=== PATIENT | male | born 2005 | race Caucasian/White ===

== ENCOUNTER 2025-03-29 19:23 | Emergency (ER) | payer OTHER, SELFPAY ==
[2025-03-29 19:24] VITALS: BMI 27.1
[2025-03-29 19:31] VITALS: BP 152/76; PULSE 98; RESP 20; TEMP 36.9; O2SAT 98
[2025-03-29] MEDS: BACITRACIN OINT 1 GM PACKET TOP (19:55)
[2025-03-29] MEDS: CLINDAMYCIN 150 MG CAPSULE 300 MG PO (19:55)
--- NOTE | 2025-03-30 04:47 | EDNOTE_ITS ---
ED Skin Abcess FB-RME/HPI General Chief complaint: Hand/Wrist Problems Stated complaint: RIGHT MIDDLE FINGER INFECTION Time Seen by Provider: 03/29/25 19:31 Arrival date/time: 03/29/25 19:23 This is a case of 20-year-old male with no medical history came into the emergency room due to finger pain history of present illness started when the patient noticed a pain redness swelling on the third finger right hand 3 days prior to arrival in the emergency room patient states that due to worsening of the symptoms and the redness and noted to have drainage on the side of his nail thus patient decided to sought consult here in the emergency room patient vaccine is up-to-date no injury no trauma Limitations: no limitations Related Data Previous Rx's ?Medication ?Instructions ?Recorded clindamycin HCl 300 mg capsule 300 mg PO Q6H 10 days # 40 caps 03/29/25 (Cleocin HCl) ibuprofen 600 mg tablet 600 mg PO Q8H PRN pain #20 t abs 03/29/25 mupirocin 2 % topical ointment 1 applic topical BID #2 2 grams 03/29/25 (Centany) Allergies Allergy/AdvReac Type Severity Reaction Status Date / Time No Known Allergies Allergy Verified 03/29/25 19:24 Review of Systems Review of Systems Systems Reviewed: All systems reviewed, normal except as documented Constitutional Constitutional: Reports system reviewed and no additional complaints, except as documented and Reports as per HPI Cardiovascular Cardiovascular: Reports system reviewed and no additional complaints, except as documented and Reports as per HPI Respiratory Respiratory: Reports system reviewed and no additional complaints, except as documented and Reports as per HPI Genitourinary Genitourinary: Reports system reviewed and no additional complaints, except as documented and Reports as per HPI Neurologic Neurologic: Reports system reviewed and no additional complaints, except as documented and Reports as per HPI Past Medical History Social History SMOKING STATUS: Current every day smoker ED Exam General Limitations: Present no limitations General appearance: Present alert, in no apparent distress and other (Patient is awake alert oriented not in distress nontoxic looking well-hydrated well- nourished) Head Head exam: Present atraumatic Eye Eye exam: Present normal appearance, PERRL and EOMI ENT ENT exam: Present normal exam, normal oropharynx and mucous membranes moist Neck Neck exam: Present normal inspection, full ROM and trachea midline; Absent tenderness, meningismus, lymphadenopathy or thyromegaly Chest Chest inspection: Present normal inspection and symmetric chest wall rise; Absent tenderness Respiratory Respiratory exam: Present normal lung sounds bilaterally; Absent respiratory distress, wheezes, stridor, accessory muscle use or prolonged expiratory phase Cardiovascular Cardiovascular exam: Present regular rate, normal rhythm and normal heart sounds; Absent bradycardia, tachycardia, irregular rhythm or systolic murmur Abdominal Exam Abdominal exam: Present soft and normal bowel sounds; Absent distention, tenderness, guarding, rebound, rigidity, diminished bowel sounds, hyperactive bowel sounds, hypoactive bowel sounds or organomegaly Extremities Exam Extremities exam: Present normal inspection and full ROM Back Exam Back exam: Present normal inspection and full ROM Neurological Exam Neurological exam: Present alert, oriented X3, CN II-XII intact, normal gait and reflexes normal; Absent motor sensory deficit Psychiatric Psychiatric exam: Present normal affect and normal mood Skin Skin exam: Present warm, dry, intact, normal color and other (Noted moderate tenderness on palpation on the distal third finger of the third finger right hand with swelling and redness suggestive of cellulitis no fluctuance nonindurated no abscess ROM intact neurovascular intact nail is intact) Course Quality Measures none Orders Category Date Time Status Bacitracin Oint pkt Med 03/29/25 19:37 Discontinued 1 gm TOP X1 ONE Clindamycin [Cleocin] Med 03/29/25 19:37 Discontinued 300 mg PO X1 ONE Vital Signs Vital signs: Vital Signs Temperature 98.5 F 03/29/25 19:31 Pulse Rate 98 03/29/25 19:31 Respiratory Rate 20 03/29/25 19:31 Blood Pressure 152/76 H 03/29/25 19:31 Pulse Oximetry (%) 98 03/29/25 19:31 Oxygen Delivery Method Room Air 03/29/25 19:31 Oxygen saturation is 98% in room air Skin / Abscess / Foreign Body MDM Narrative MDM Narrative:: This is a case of 20-year-old male with no medical history came into the emergency room due to finger pain history of present illness started when the patient noticed a pain redness swelling on the third finger right hand 3 days prior to arrival in the emergency room patient states that due to worsening of the symptoms and the redness and noted to have drainage on the side of his nail thus patient decided to sought consult here in the emergency room patient vaccine is up-to-date no injury no trauma physical examination patient is awake alert oriented not in distress nontoxic looking well-hydrated well no noted moderate tenderness on palpation on the third finger right hand with some redness suggestive of cellulitis and abscess but no fluctuance nonindurated ROM intact neurovascular intact patient was given a clindamycin here in the emergency room and mupirocin ointment patient will follow-up with PCP in 2 days for reevaluation and wound check and for any worsening symptoms or any emergent concern return precaution in the ER is adsvied Patient data External records reviewed:: [facility] previous records Clinical information provided by:: patient Social determinants that could affect healthcare access:: none (none) Patient has the following chronic illnesses:: none How is presenting disease/condition affected by chronic disease/condition?: no chronic disease Evaluation data The following diagnostics were reviewed and interpreted by me:: other (specify) (none) Lab and/or radiology exams considered but not ordered:: none Interpretation Summary: none Medications / Prescriptions Medications or Prescriptions considered but not ordered:: given Medication administrations:: Medication Administration History Discontinued Medications Bacitracin (Bacitracin Oint 1 Gm Packet) 1 gm TOP X1 ONE Stop: 03/29/25 19:38 Last Admin: 03/29/25 19:55 Dose: 1 gm Documented By: MEDHAT Clindamycin HCl (Clindamycin 150 Mg Capsule) 300 mg PO X1 ONE Stop: 03/29/25 19:38 Last Admin: 03/29/25 19:55 Dose: 300 mg Documented By: MEDHAT given Consultations Consultation(s) initiated? (list below): No Diagnosis Skin/Abscess Differential Diagnosis: abscess of skin or subcutaneous tissue and cellulitis Most likely diagnosis given after review of the tests above:: abscess/cellulitis finger Admission Indicated Admission indicated?: not indicated Explain why admission is indicated or not indicated:: not indicated Admission Request Was there a request for admission?: No Disposition Plan Disposition Plan: Discharge Discharge Attestation Discharge Attestation: The patient and all family members were given an opportunity to ask questions and understood the discharge instructions. Discharge instructions specifically effects, indications for sooner follow up or return to the emergency department, and the expected course of current diagnosis. Patient condition: Stable Discharge Plan Plan Patient Disposition: HOME (Self Care) Patient condition on transfer: Stable Prescriptions/Referrals Prescriptions/Med Rec: New clindamycin HCl [Cleocin HCl] 300 mg capsule 300 mg PO Q6H 10 Days Qty: 40 0RF mupirocin [Centany] 2 % ointment 1 applic topical BID Qty: 22 0RF ibuprofen 600 mg tablet 600 mg PO Q8H PRN (Reason: pain) Qty: 20 0RF Problem List Clinical Impression: Paronychia, Cellulitis of finger Patient/Caregiver Discharge Instructions Education Materials: ED Cellulitis, ED Paronychia of the Finger or Toe Additional Instructions: Follow-up with your primary care physician in 2 days for reevaluation and wound check worsening symptoms or any emergent concern call 911 or go to the nearest emergency room take your medication as directed finish the course of antibiotic keep the area clean and dry Print Language: Portuguese Stand Alone Forms: Marlee Award Info., Patient Portal Info Letter PA/PRACTICAL NURSING INSTRUCTOR Supervising Physician PA/PRACTICAL NURSING INSTRUCTOR Supervising Physician: DR tu smith
== END 2025-03-29 20:33 | disposition home or self-care (01) ==
LOC: SERX 20:04
PROVIDERS: Emergency Provider Emergency Medicine
DX: L03.011 Cellulitis of right finger (principal)
CPT/HCPCS: 99281; A9270

== ENCOUNTER 2025-04-13 20:17 | Emergency (ER) | payer OTHER, SELFPAY ==
[2025-04-13 20:18] VITALS: BMI 30.8
--- NOTE | 2025-04-13 20:39 | EKG_ITS ---
[facility] (Formerly [facility]) Test Date: 2025-04-13 Pat Name: DANISH KELLER Department: Room: - Gender: Male Petrologist: : 2005 Requested By: ED Temporary Provider Order Number: [id number] Reading MD: ED Temporary Provider Measurements Intervals [place] Rate: 81 P: 45 IA: 154 QRS: 82 QRSD: 89 T: 31 QT: 360 QTc: 419 Interpretive Statements SINUS RHYTHM No previous ECG available for comparison /store/[email or web address]/[id number].pdf
[2025-04-13 21:24] VITALS: BP 136/91; PULSE 72; RESP 18; TEMP 36.9; O2SAT 98
--- NOTE | 2025-04-13 21:30 | XR_ITS ---
EXAMINATION: PA chest single view TECHNIQUE: Upright PA chest single view Date and time: April 13, 2025, 215 hours INDICATIONS: Chest tightness shortness of breath today. FINDINGS: Normal heart size Lungs are clear Osseous structures are intact IMPRESSION: No active disease
[2025-04-13 21:51] LABS: Basophils # (Auto) 0.1 Thou/mm3 (0.0-0.2); Basophils % (Auto) 1 % (0-2.5); Eosinophils # (Auto) 0.2 Thou/mm3 (0.0-0.5); Eosinophils % (Auto) 3 % (0-10); Hematocrit 42.7 % (41.0-53.0); Hemoglobin 14.9 g/dL (13.5-16.0); Immature Granulocytes Auto 0.00 Thou/mm3 (0.00-0.00); Lymphocytes # (Auto) 2.4 Thou/mm3 (1.0-4.8); Lymphocytes % (Auto) 38 % (10-50); Mean Corpuscular HGB Conc 34.9 g/dl (31.0-37.0); Mean Corpuscular Hemoglobin 30.7 pg (25.0-35.0); Mean Corpuscular Volume 88 fL (80-100); Monocytes # (Auto) 0.6 Thou/mm3 (0.0-0.8); Monocytes % (Auto) 9 % (0-12); Neutrophils # (Auto) 3.1 Thou/mm3 (1.8-7.7); Neutrophils % (Auto) 49 % (37-80); Nucleated Red Blood Cell # 0.00 Thou/mm3 (0.00-0.00); Nucleated Red Blood Cell % 0 /100 WBC (0); Platelet Count 282 Thou/mm3 (140-440); RDW Standard Deviation 40.3 fL (35.1-43.9); Red Blood Count 4.85 Miln/mm3 (4.50-5.90); White Blood Count 6.3 Thou/mm3 (3.8-10.6)
[2025-04-13 22:10] LABS: B-Type Natriuretic Peptide < 20 pg/mL (0-100)
[2025-04-13 22:13] LABS: Alanine Aminotransferase 33 U/L (10-49); Albumin, Serum 4.7 gm/dL (3.5-5.0); Albumin/Globulin Ratio 1.7 (1.2-2.2); Alkaline Phosphatase 48 U/L (46-116); Anion Gap 7 (7-16); Aspartate Amino Transferase 34 U/L (0-34); BUN/Creatinine Ratio 11 Ratio (12-20); Bilirubin,Total 0.3 mg/dL (0.3-1.2); Blood Urea Nitrogen 13 mg/dL (9-23); Calcium 9.0 mg/dL (8.3-10.6); Calcium (Corrected) 9.0 mg/dL (8.5-10.1); Carbon Dioxide 29.6 mMol/L (20.0-31.0); Chloride 104 mMol/L (98-107); Creatinine (Component) 1.2 mg/dL (0.6-1.3); Estimated Creatinine Clearance 127.9 mL/min (>60); Globulin 2.8 gm/dL (2.3-3.5); Glucose 96 mg/dL (74-106); Osmolality,Calculated 281 (275-295); Potassium 4.1 mMol/L (3.4-5.1); Sodium 141 mMol/L (136-145); Thyroid Stimulating Hormone 3.67 uIU/mL (0.55-4.78); Total Protein 7.5 gm/dL (5.7-8.2); Troponin I < 0.002 ng/mL (0.0-0.045); eGFR > 60 See Note
--- NOTE | 2025-04-13 22:37 | EDNOTE_ITS ---
ED Chest Pain RME/HPI General Chief Complaint: Chest Pain Stated Complaint: TIGHNESS IN CHEST, FELT SOB Time Seen by Provider: 04/13/25 20:42 Arrival date/time: 04/13/25 20:17 This is a case of 20-year-old male with no medical history came in in the emergency room due to chest pain history of present illness started today when the patient had midsternal chest pain tightness in character nonradiating with mild shortness of breath with no palpitation no other symptoms noted Limitations: no limitations Related Data Previous Rx's ?Medication ?Instructions ?Recorded ibuprofen 600 mg tablet 600 mg PO Q8H PRN pain #20 t abs 03/29/25 mupirocin 2 % topical ointment 1 applic topical BID #2 2 grams 03/29/25 (Centany) ibuprofen 600 mg tablet 600 mg PO Q8H PRN pain #20 t abs 04/13/25 Allergies Allergy/AdvReac Type Severity Reaction Status Date / Time No Known Allergies Allergy Verified 03/29/25 19:24 Review of Systems Review of Systems Systems Reviewed: All systems reviewed, normal except as documented Constitutional Constitutional: Reports system reviewed and no additional complaints, except as documented and Reports as per HPI Cardiovascular Cardiovascular: Reports system reviewed and no additional complaints, except as documented and Reports as per HPI Respiratory Respiratory: Reports system reviewed and no additional complaints, except as documented and Reports as per HPI Gastrointestinal Gastrointestinal: Reports system reviewed and no additional complaints, except as documented and Reports as per HPI Musculoskeletal Musculoskeletal: Reports system reviewed and no additional complaints, except as documented and Reports as per HPI Neurologic Neurologic: Reports system reviewed and no additional complaints, except as documented and Reports as per HPI Past Medical History Social History SMOKING STATUS: Current every day smoker ED Exam General Limitations: Present no limitations General appearance: Present alert, in no apparent distress and other (Patient is awake alert oriented not in distress nontoxic looking well-hydrated well nourished) Head Head exam: Present atraumatic, normocephalic and normal inspection Eye Eye exam: Present normal appearance, PERRL and EOMI ENT ENT exam: Present normal exam, normal oropharynx and mucous membranes moist Neck Neck exam: Present normal inspection, full ROM and trachea midline; Absent tenderness, meningismus, lymphadenopathy or thyromegaly Chest Chest inspection: Present normal inspection, symmetric chest wall rise and tenderness (Mild pinpoint tenderness on midsternal no crepitation no deformity no palpable rib fracture no subcutaneous emysema) Respiratory Respiratory exam: Present normal lung sounds bilaterally; Absent respiratory distress, wheezes, stridor, accessory muscle use or prolonged expiratory phase Cardiovascular Cardiovascular exam: Present regular rate, normal rhythm and normal heart sounds; Absent bradycardia, tachycardia, irregular rhythm, systolic murmur or diastolic murmur Abdominal Exam Abdominal exam: Present soft and normal bowel sounds; Absent distention, t enderness, guarding, rebound, rigidity, diminished bowel sounds, hyperactive bowel sounds, hypoactive bowel sounds or organomegaly Extremities Exam Extremities exam: Present normal inspection and full ROM Back Exam Back exam: Present normal inspection and full ROM Neurological Exam Neurological exam: Present alert, oriented X3, CN II-XII intact, normal gait and reflexes normal; Absent motor sensory deficit Psychiatric Psychiatric exam: Present normal affect and normal mood Skin Skin exam: Present warm, dry, intact, normal color and other (excellent skin turgor) Course Quality Measures none Orders Category Date Time Status EKG (ED ONLY) *Do not use* NOW Care 04/13/25 20:39 Completed EKG (ED ONLY) *Do not use* NOW Care 04/13/25 21:30 Completed EKG (ED Only) Stat Exams 04/13/25 20:39 Draft EKG (ED Only) Stat Exams 04/13/25 21:30 Ordered XR chest 1V Stat Exams 04/13/25 21:30 Completed BNP [B-Type Natriuretic Peptide] Stat Lab 04/13/25 21:38 Completed CBC Stat Lab 04/13/25 21:38 Completed CMP [Comprehensive Metabolic Panel] Stat Lab 04/13/25 21:38 Completed TSH [Thyroid Stimulating Hormone] Stat Lab 04/13/25 21:38 Completed Troponin I Stat Lab 04/13/25 21:38 Completed Urinalysis Stat Lab 04/13/25 21:30 Ordered Vital Signs Vital signs: Vital Signs Temperature 98.5 F 04/13/25 21:24 Pulse Rate 72 04/13/25 21:24 Respiratory Rate 18 04/13/25 21:24 Blood Pressure 136/91 H 04/13/25 21:24 Pulse Oximetry (%) 98 04/13/25 21:24 Oxygen Delivery Method Room Air 04/13/25 21:24 Oxygen saturation is 98% in room air Chest Pain MDM Narrative MDM Narrative:: This is a case of 20-year-old male with no medical history came in in the emergency room due to chest pain history of present illness started today when the patient had midsternal chest pain tightness in character nonradiating with mild shortness of breath with no palpitation no other symptoms noted patient is awake alert oriented not in distress nontoxic looking well-hydrated well- nourished vital signs stable BP stable not tachycardic not tachypneic afebrile and nonhypoxic patient noted to have a pinpoint tenderness on midsternal area no crepitation no deformity no palpable rib fracture no subcutaneous emphysema suggestive of costochondritis lungs sound is clear equal no crackles no rales no wheezing no retraction no stridor heart normal rate regular rhythm no murmur the rest of the physical examination neurological exam is normal and unremarkable blood test showed no leukocytosis no anemia kidney and liver function is normal no electrolyte imbalance troponin is normal BNP is normal TSH is normal EKG sinus rhythm no ST elevation or depression chest x-ray is normal at this point I do not think patient is having myocardial infarction nor pulmonary embolism patient chest pain is possible due to costochondritis patient was advised to follow-up with PCP to be referred to trade show manager for possible echocardiogram stress test and Holter monitor patient agreed with the treatment plan and lise calero Patient was discharged with comfortable condition walking with stable gait. Patient verbalized no further complains explained diagnosis and answered patient question. Patient is comfortable with the proposed management plan including the need to follow up with his/her primary care physician and any specialist if applicable Discussed patient for any urgent condition or worsening sx, He/She needed to go to emergency room immediately or call 911. Patient acknowledge the responsibility to follow up as instructed and to monitor her/his symptoms. For any persistence of the symptoms for more than 3-5 days return precaution advised. Discussed the result of the test and was given printed discharge instruction Patient data External records reviewed:: [facility] previous records Clinical information provided by:: patient and parent Social determinants that could affect healthcare access:: none Patient has the following chronic illnesses:: None How is presenting disease/condition affected by chronic disease/condition?: no chronic disease Evaluation data The following diagnostics were reviewed and interpreted by me:: lab results, radiology exam(s) and EKG tracing(s) Lab and/or radiology exams considered but not ordered:: Reviewed Interpretation Summary: Reviewed Medications / Prescriptions Medications or Prescriptions considered but not ordered:: Given Medication administrations:: Given Consultations Consultation(s) initiated? (list below): No Diagnosis Chest Pain Differential Diagnosis: atypical chest pain, costochondritis and chest pain Most likely diagnosis given after review of the tests above:: Costochondritis Admission Indicated Admission indicated?: not indicated Explain why admission is indicated or not indicated:: Not indicated Admission Request Was there a request for admission?: No Admission Attestation Admission request attestation: Not indicated Disposition Plan Disposition Plan: Discharge Discharge Attestation Discharge Attestation: The patient and all family members were given an opportunity to ask questions and understood the discharge instructions. Discharge instructions specifically effects, indications for sooner follow up or return to the emergency department, and the expected course of current diagnosis. Patient condition: Stable Discharge Plan Plan Patient Disposition: HOME (Self Care) Patient condition on transfer: Stable Prescriptions/Referrals Prescriptions/Med Rec: New ibuprofen 600 mg tablet 600 mg PO Q8H PRN (Reason: pain) Qty: 20 0RF No Action mupirocin [Centany] 2 % ointment 1 applic topical BID Qty: 22 0RF ibuprofen 600 mg tablet 600 mg PO Q8H PRN (Reason: pain) Qty: 20 0RF Referrals: No Primary/Family,Physician [Primary Care Provider] - In 1 week Problem List Clinical Impression: Chest pain of unknown etiology, Costochondritis Patient/Caregiver Discharge Instructions Education Materials: Costochondritis, ED Chest Pain, Uncertain Cause Additional Instructions: Follow-up with your primary care physician in 2 days for reevaluation and to be referred to trade show manager for further evaluation and treatment of chest pain for possible echocardiogram stress test and Holter monitor recurrence persistent worsening symptoms or any emergent concern call 911 or go to the nearest emergency room Print Language: Filipino Stand Alone Forms: Marlee Award Info., Patient Portal Info Letter PA/CLUB ROOM ATTENDANT Supervising Physician PA/CLUB ROOM ATTENDANT Supervising Physician: Dr. Shea
== END 2025-04-13 22:54 | disposition home or self-care (01) ==
PROVIDERS: Nurse Practitioner Family; Emergency Provider Emergency Medicine
DX: M94.0 Chondrocostal junction syndrome [Tietze] (principal)
CPT/HCPCS: 36415; 71045; 80053; 81001; 83880; 84443; 84484; 85025; 93005; 99283